=== PATIENT | female | born 1975 | race Hispanic/Latino ===

== ENCOUNTER 2023-06-19 23:44 | Inpatient (IN) | payer BC, SELFPAY ==
[2023-06-20] MEDS ORDERED: Ondansetron PF 4 MG/2 ML Vial ONE (00:39)
[2023-06-20] MEDS ORDERED: Morphine 4 MG/ML VIAL ONE (01:04)
[2023-06-20 01:05] LABS: ALT (SGPT) 9 U/L (8-55); AST (SGOT) 16 U/L (5-34); Albumin 4.8 g/dL (3.5-5.0); Alkaline Phosphatase 115 U/L (40-110); Anion Gap 17 mmol/L (10-20); BUN (Urea Nitrogen) 6 mg/dL (7.0-18.7); Calc. Creatinine Clearance 0 mL/min (70-130); Calcium 9.2 mg/dL (7.8-10.44); Carbon Dioxide 16 mmol/L (22-29); Chloride 108 mmol/L (98-107); Estimated GFR 109; Globulin 3.1 g/dL (2.4-3.5); Glucose 179 mg/dL (70-105); Lipase 4 U/L (8-78); Magnesium 1.9 mg/dL (1.6-2.6); Potassium 3.2 mmol/L (3.5-5.1); Protein, Total 7.9 g/dL (6.0-8.3); Sodium 138 mmol/L (136-145)
[2023-06-20 01:11] LABS: BHCG - Serum Negative (NEGATIVE); Pregs Control Background? CLEAR/WHITE (CLR/WHITE); Pregs Control Bar Appear? YES (CONTROL BAR)
[2023-06-20 01:55] LABS: #Monocytes 0.2 thou/uL (0.11-0.59); #Neutrophils 2.6 thou/uL (1.40-6.50); %Lymphocytes 7.6 % (21.0-51.0); %Neutrophils 87.1 % (42.0-75.0); Hematocrit 11.9 % (36.0-47.0); Hemoglobin 2.9 g/dL (12.0-16.0); Mean Corpuscular Hemoglobin 14.9 pg (27.0-31.0); Mean Corpuscular Volume 61.3 fl (78.0-98.0); Mean Platelet Volume 9.4 fL (7.4-10.4); Platelet Count 183 10x3/uL (130-400); RBC Distribution Width 22.5 % (11.5-14.5); Red Blood Cell (RBC) Count 1.94 mill/uL (4.20-5.40)
[2023-06-20 01:56] LABS: Mean Corpuscular HGB CONC 24.4 g/dL (32.0-36.0)
[2023-06-20] MEDS ORDERED: Magnesium 2 GM/50 ML BAG (IN WATER) ONE (02:29)
[2023-06-20 03:02] LABS: Anisocytosis SLIGHT = 6-15 cells HPF (0-5); CellaVision Operator ID LAB.JMM; Hypochromia MARKED = >30 cells HPF (0-5); Microcytosis MODERATE=15-30 cells HPF (0-5); Platelet Adequacy Comment Platelets Normal
[2023-06-20] MEDS ORDERED: Potassium Bicarbonate/Cit Ac 20 MEQ TAB ONE (03:46)
[2023-06-20] MEDS ORDERED: Potassium Chloride 20 MEQ TAB ONE (03:47)
[2023-06-20] MEDS ORDERED: Ondansetron ODT 4 MG TAB PO PRN (04:33)
[2023-06-20] MEDS ORDERED: Dextrose 5%-Lactated Ringers 1,000 ML IV SCH (04:45)
[2023-06-20] MEDS ORDERED: Electrolyte Replacement Protocol 1 EACH FS SCH (05:20)
[2023-06-20 05:34] LABS: Lactic Acid 0.9 mmol/L (0.5-2.2)
[2023-06-20 06:04] LABS: Bacteria/HPF None Seen HPF (None Seen); Bilirubin Negative (Negative); Blood, Urine Negative (Negative); CAUTI Indications for Culture Dysuria,urgency,freq; Clarity Clear (Clear); Glucose, Urine (Dipstick) Normal (Negative); Ketone, Urine Negative (Negative); Leukocyte Negative Leu/uL (Negative); Nitrite Negative (Negative); Protein, Urine (Dipstick) Negative (Neg-Trace); RBC/HPF 0-3 HPF (0-3); Specific Gravity, Urine 1.041 (1.002-1.036); Squamous Epithelial 0-3 HPF (0-3); Urobilinogen Normal mg/dL (Less than 2); WBC/HPF 0-3 HPF (0-3)
[2023-06-20 06:06] LABS: Urine Culture Reflex No No
[2023-06-20 06:08] VITALS: BMI 24.2
[2023-06-20 08:15] LABS: Hemoglobin A1c 5.2 % (4.0-6.0)
[2023-06-20 10:16] LABS: Free T4 (Free Thyroxine) 0.97 ng/dL (0.70-1.48)
[2023-06-20] MEDS ORDERED: Ondansetron PF 4 MG/2 ML Vial IVP PRN (10:23)
[2023-06-20] MEDS: Acetaminophen 325 MG TAB PO PRN ×2 (10:35→21:59)
[2023-06-20] MEDS: Famotidine 20 MG TAB PO SCH ×2 (10:37→21:57)
[2023-06-20] MEDS ORDERED: Benzocaine 20% Spray 60 ML CAN PO SCH (10:54)
[2023-06-20 11:11] LABS: INR-International Normal Ratio 1.3; PTT 31.3 sec (22.9-36.1); Prothrombin Time 16.7 sec (12.0-14.7)
[2023-06-20] MEDS ORDERED: Magnesium 2 GM/50 ML(in water) 2 GM in Premix 1 BAG IVPB SCH (12:15)
[2023-06-20] MEDS ORDERED: Iopamidol 370 76% 100 ML VIAL ONE (15:46)
[2023-06-20 16:16] LABS: Hematocrit 20.5 % (36.0-47.0)
[2023-06-20 16:30] LABS: Hemoglobin 6.1 g/dL (12.0-16.0)
[2023-06-20 16:40] LABS: Anion Gap 11 mmol/L (10-20); BUN (Urea Nitrogen) 4 mg/dL (7.0-18.7); Calc. Creatinine Clearance 102 mL/min (70-130); Carbon Dioxide 17 mmol/L (22-29); Chloride 115 mmol/L (98-107); Estimated GFR 112; Glucose 143 mg/dL (70-105); Magnesium 2.6 mg/dL (1.6-2.6); Potassium 3.4 mmol/L (3.5-5.1); Sodium 140 mmol/L (136-145)
[2023-06-20] MEDS ORDERED: Potassium Chloride 20 MEQ TAB PO SCH (17:45)
[2023-06-20] MEDS ORDERED: FLU VACC QS2023-24(6MOS UP)/PF 60 MCG/0.5 ML SYRINGE IM ONE (18:00)
[2023-06-21 01:21] LABS: #Eosinphils 0.1 thou/uL (0.0-0.7); #Monocytes 0.2 thou/uL (0.11-0.59); #Neutrophils 1.4 thou/uL (1.40-6.50); %Basophils 0.3 % (0.0-1.0); %Eosinophils 3.3 % (0.0-10.0); %Lymphocytes 46.7 % (21.0-51.0); %Monocytes 5.2 % (0.0-10.0); %Neutrophils 44.2 % (42.0-75.0); Hematocrit 23.8 % (36.0-47.0); Hemoglobin 7.2 g/dL (12.0-16.0); Mean Corpuscular HGB CONC 30.3 g/dL (32.0-36.0); Mean Corpuscular Hemoglobin 22.2 pg (27.0-31.0); Mean Corpuscular Volume 73.5 fl (78.0-98.0); Platelet Count 138 10x3/uL (130-400); RBC Distribution Width 24.7 % (11.5-14.5); Red Blood Cell (RBC) Count 3.24 mill/uL (4.20-5.40); White Blood Cell (WBC) Count 3.1 10x3/uL (4.8-10.8)
[2023-06-21 02:05] LABS: Albumin 3.7 g/dL (3.5-5.0); Alkaline Phosphatase 86 U/L (40-110); Anion Gap 12 mmol/L (10-20); Bilirubin, Total 2.3 mg/dL (0.2-1.2); Calcium 7.6 mg/dL (7.8-10.44); Carbon Dioxide 17 mmol/L (22-29); Chloride 114 mmol/L (98-107); Globulin 2.3 g/dL (2.4-3.5); Glucose 87 mg/dL (70-105); Potassium 3.6 mmol/L (3.5-5.1); Sodium 139 mmol/L (136-145)
[2023-06-21 02:06] LABS: Calc. Creatinine Clearance 110 mL/min (70-130); Estimated GFR 114
[2023-06-21 02:07] LABS: BUN (Urea Nitrogen) 4 mg/dL (7.0-18.7)
[2023-06-21 02:08] LABS: ALT (SGPT) 11 U/L (8-55); AST (SGOT) 15 U/L (5-34); Magnesium 2.1 mg/dL (1.6-2.6)
[2023-06-21] MEDS: Famotidine 20 MG TAB PO SCH (10:43)
[2023-06-21] MEDS: Acetaminophen 325 MG TAB PO PRN (10:48)
[2023-06-21 11:21] VITALS: TEMP 98.5
[2023-06-21 15:24] VITALS: BP 135/77
== END 2023-06-21 17:30 | disposition home or self-care (01) | DRG 812 ==
LOC: ERS 23:44 → ERHOLD 06-20 05:58 → 2NO 06-20 08:44
PROVIDERS: ADMIT Student in an Organized Health Care Education/Training Program; ATTEND Internal Medicine
PROC: 30233N1 Transfusion of Nonautologous Red Blood Cells into Peripheral Vein, Percutaneous Approach (ICD-10-PCS; principal; 2023-06-20)
DX: D50.9 Iron deficiency anemia, unspecified (principal); K56.609 Unspecified intestinal obstruction, unspecified as to partial versus complete obstruction; F17.210 Nicotine dependence, cigarettes, uncomplicated; E87.6 Hypokalemia; N93.8 Other specified abnormal uterine and vaginal bleeding; E03.9 Hypothyroidism, unspecified; R63.0 Anorexia; F10.90 Alcohol use, unspecified, uncomplicated; K80.20 Calculus of gallbladder without cholecystitis without obstruction; Z71.6 Tobacco abuse counseling; Z68.24 Body mass index [BMI] 24.0-24.9, adult; Z79.899 Other long term (current) drug therapy; Z98.891 History of uterine scar from previous surgery
CPT/HCPCS: 36415; 36430; 71045; 74177; 74250; 76705; 80053; 81001; 82274; 83036; 83605; 83690; 83735; 84439; 84443; 84481; 84484; 84703; 85025; 85610; 85730; 86850; 86900; 86901; 93005; 96365; 96366; 96375; J2270; J2405; J3475; P9016

== ENCOUNTER 2025-04-15 07:53 | Inpatient (IN) | payer SELFPAY ==
[2025-04-15 08:37] LABS: #Basophils Less than 0.03 10x3/uL (0.0-0.2); #Eosinophils 0.15 10x3/uL (0.0-0.7); #Monocytes 0.14 10x3/uL (0.11-0.59); #Neutrophils 1.37 10x3/uL (1.40-6.50); %Basophils 0.4 % (0.0-1.0); %Eosinophils 5.6 % (0.0-10.0); %Lymphocytes 36.8 % (21.0-51.0); %Monocytes 5.3 % (0.0-10.0); %Neutrophils 51.5 % (42.0-75.0); Hematocrit 17.8 % (36.0-47.0); Hemoglobin 4.3 g/dL (12.0-16.0); Mean Corpuscular Hemoglobin 15.7 pg (27.0-31.0); Mean Corpuscular Volume 65.0 fL (78.0-98.0); Platelet Count 165 10x3/uL (130-400); Red Blood Cell (RBC) Count 2.74 mill/uL (4.20-5.40); White Blood Cell (WBC) Count 2.66 10x3/uL (4.8-10.8)
[2025-04-15 09:01] LABS: ALT (SGPT) Less than 7 U/L (Less than 34); AST (SGOT) 13 U/L (11-34); Albumin 3.9 g/dL (3.1-4.5); Alkaline Phosphatase 112 U/L (40-110); Anion Gap 12 mmol/L (10-20); BUN (Urea Nitrogen) 6 mg/dL (7.0-18.7); Bilirubin, Total 0.7 mg/dL (0.3-1.2); Calc. Creatinine Clearance 0 mL/min (70-130); Calcium 8.0 mg/dL (7.8-10.44); Carbon Dioxide 22 mmol/L (22-29); Chloride 108 mmol/L (98-107); Globulin 2.9 g/dL (2.4-3.5); Glucose 90 mg/dL (70-105); Potassium 3.5 mmol/L (3.5-5.1); Sodium 138 mmol/L (136-145)
[2025-04-15] MEDS ORDERED: Ondansetron PF 4 MG/2 ML Vial IVP PRN (09:54)
[2025-04-15] MEDS ORDERED: Senokot S 8.6-50 MG TAB PO PRN (09:54)
[2025-04-15] MEDS ORDERED: Melatonin 3 MG TAB PO PRN (09:54)
[2025-04-15] MEDS ORDERED: Acetaminophen 325 MG TAB PO PRN (09:54)
[2025-04-15] MEDS ORDERED: Calcium Carbonate 500 MG ChewTAB PO PRN (09:54)
[2025-04-15] MEDS ORDERED: Bisacodyl 10 MG SUPP PR PRN (09:54)
[2025-04-15 10:37] LABS: Iron 9 ug/dL (50-170); Iron Binding Capacity, Total 344 mcg/dL (265-497)
[2025-04-15 11:00] LABS: Ferritin 2.29 ng/mL (10-291); Vitamin B12 153.0 pg/mL (211-911)
[2025-04-15 11:56] LABS: Hematocrit 22.7 % (36.0-47.0); Hemoglobin 6.0 g/dL (12.0-16.0)
[2025-04-15 13:04] VITALS: BMI 24.2
[2025-04-15] MEDS: Multivit, Therapeutic 1 TAB PO SCH (17:25)
[2025-04-15] MEDS: Thiamine 100 MG TAB PO SCH (17:25)
[2025-04-15] MEDS: Folic Acid 1 MG TAB PO SCH (17:25)
[2025-04-15] MEDS: Cyanocobalamin 1000 MCG/ML VIAL IM SCH (17:26)
[2025-04-16 06:04] LABS: #Basophils Less than 0.03 10x3/uL (0.0-0.2); #Eosinophils 0.16 10x3/uL (0.0-0.7); #Monocytes 0.19 10x3/uL (0.11-0.59); #Neutrophils 1.34 10x3/uL (1.40-6.50); %Basophils 0.7 % (0.0-1.0); %Eosinophils 5.9 % (0.0-10.0); %Lymphocytes 37.1 % (21.0-51.0); %Monocytes 7.0 % (0.0-10.0); %Neutrophils 49.3 % (42.0-75.0); Hematocrit 25.9 % (36.0-47.0); Hemoglobin 7.5 g/dL (12.0-16.0); Mean Corpuscular Hemoglobin 20.5 pg (27.0-31.0); Mean Corpuscular Volume 71.0 fL (78.0-98.0); Platelet Count 131 10x3/uL (130-400); Red Blood Cell (RBC) Count 3.65 mill/uL (4.20-5.40); White Blood Cell (WBC) Count 2.72 10x3/uL (4.8-10.8)
[2025-04-16 06:35] LABS: Anion Gap 11 mmol/L (10-20); BUN (Urea Nitrogen) 7 mg/dL (7.0-18.7); Calc. Creatinine Clearance 126 mL/min (70-130); Calcium 8.0 mg/dL (7.8-10.44); Carbon Dioxide 20 mmol/L (22-29); Chloride 109 mmol/L (98-107); Glucose 93 mg/dL (70-105); Potassium 3.3 mmol/L (3.5-5.1); Sodium 137 mmol/L (136-145)
[2025-04-16] MEDS: Multivit, Therapeutic 1 TAB PO SCH (09:16)
[2025-04-16] MEDS: Thiamine 100 MG TAB PO SCH (09:16)
[2025-04-16] MEDS: Cyanocobalamin (Vitamin B-12) 1,000 MCG TAB PO SCH (09:16)
[2025-04-16] MEDS: Folic Acid 1 MG TAB PO SCH (09:16)
[2025-04-16] MEDS: Sodium Ferric Gluconate 250 MG in Sodium Chloride 0.9% 250 ML 250 ML IVPB SCH (10:50)
[2025-04-17 05:15] LABS: #Basophils 0.03 10x3/uL (0.0-0.2); #Eosinophils 0.21 10x3/uL (0.0-0.7); #Monocytes 0.19 10x3/uL (0.11-0.59); #Neutrophils 1.70 10x3/uL (1.40-6.50); %Basophils 0.9 % (0.0-1.0); %Eosinophils 6.1 % (0.0-10.0); %Lymphocytes 38.3 % (21.0-51.0); %Monocytes 5.5 % (0.0-10.0); %Neutrophils 49.2 % (42.0-75.0); Hematocrit 26.7 % (36.0-47.0); Hemoglobin 7.7 g/dL (12.0-16.0); Mean Corpuscular Hemoglobin 20.4 pg (27.0-31.0); Mean Corpuscular Volume 70.8 fL (78.0-98.0); Platelet Count 151 10x3/uL (130-400); Red Blood Cell (RBC) Count 3.77 mill/uL (4.20-5.40); White Blood Cell (WBC) Count 3.45 10x3/uL (4.8-10.8)
[2025-04-17 05:18] LABS: INR-International Normal Ratio 1.2; Prothrombin Time 15.1 sec (12.0-14.7)
[2025-04-17 05:19] LABS: PTT 40.9 sec (22.9-36.1)
[2025-04-17 05:51] LABS: Burr Cells SLIGHT = 2-5 cells HPF (0-1); Microcytosis SLIGHT = 6-15 cells HPF (0-5); Platelet Adequacy Comment Platelets Normal; Polychromasia SLIGHT = 2-3 cells HPF (0-2); Schistocytes SLIGHT = 2-5 cells HPF (0-1); Smudge Cells 6.0 %
[2025-04-17] MEDS: Sodium Ferric Gluconate 250 MG in Sodium Chloride 0.9% 250 ML 250 ML IVPB SCH (05:56)
[2025-04-17] MEDS: Ferrous Gluconate 324 MG TAB PO SCH (08:03)
[2025-04-17] MEDS: Potassium Bicarbonate/Cit Ac 20 MEQ TAB PO SCH (09:54)
[2025-04-17 12:19] VITALS: BP 149/80; TEMP 97.6
== END 2025-04-17 13:01 | disposition home or self-care (01) | DRG 761 ==
LOC: ERS 07:53 → T4-A 10:09
PROVIDERS: ADMIT Family Medicine; ATTEND Family Medicine
DX: N91.5 Oligomenorrhea, unspecified (principal); D50.9 Iron deficiency anemia, unspecified; F17.210 Nicotine dependence, cigarettes, uncomplicated; F10.10 Alcohol abuse, uncomplicated
CPT/HCPCS: 36415; 36430; 80048; 80053; 82274; 82607; 82728; 83540; 83550; 85025; 85610; 85730; 86850; 86900; 86901; 87428; 99285; J2916; J3420; J7050; P9016

== ENCOUNTER 2025-08-13 22:13 | Emergency (ER) | payer OTHER ==
[2025-08-13 22:55] LABS: #Basophils 0.03 10x3/uL (0.0-0.2); #Eosinophils 0.32 10x3/uL (0.0-0.7); #Monocytes 0.20 10x3/uL (0.11-0.59); #Neutrophils 2.44 10x3/uL (1.40-6.50); %Basophils 0.6 % (0.0-1.0); %Eosinophils 6.8 % (0.0-10.0); %Lymphocytes 36.4 % (21.0-51.0); %Monocytes 4.3 % (0.0-10.0); %Neutrophils 51.9 % (42.0-75.0); Hematocrit 32.6 % (36.0-47.0); Hemoglobin 10.3 g/dL (12.0-16.0); Mean Corpuscular Hemoglobin 27.1 pg (27.0-31.0); Mean Corpuscular Volume 85.8 fL (78.0-98.0); Platelet Count 174 10x3/uL (130-400); Red Blood Cell (RBC) Count 3.80 mill/uL (4.20-5.40); White Blood Cell (WBC) Count 4.70 10x3/uL (4.8-10.8)
[2025-08-13 23:03] LABS: BHCG - Serum Negative (NEGATIVE); Pregs Control Background? CLEAR/WHITE (CLR/WHITE); Pregs Control Bar Appear? YES (CONTROL BAR)
== END 2025-08-14 00:20 | disposition home or self-care (01) ==
LOC: ERS 22:13
DX: N93.9 Abnormal uterine and vaginal bleeding, unspecified (principal); F17.210 Nicotine dependence, cigarettes, uncomplicated
CPT/HCPCS: 36415; 84703; 85025; 86850; 86900; 86901